=== PATIENT | female | born 1970 | race Caucasian/White ===

== ENCOUNTER 2023-04-05 14:36 | Outpatient (CLI) | payer BC | END 2023-04-05 14:37 | disposition home or self-care (01) | LOC: CSHMAMMO 14:36 | PROVIDERS: ATTEND Nurse Practitioner Family | DX: Z12.31 Encounter for screening mammogram for malignant neoplasm of breast (principal) | CPT/HCPCS: 77063; 77067 ==

== ENCOUNTER 2024-07-07 15:18 | Outpatient (CLI) | payer BC | END 2024-07-07 15:19 | disposition home or self-care (01) | LOC: CSHMAMMO 15:18 | PROVIDERS: ATTEND Family Medicine | DX: Z12.31 Encounter for screening mammogram for malignant neoplasm of breast (principal); Z98.890 Other specified postprocedural states | CPT/HCPCS: 77063; 77067 ==